=== PATIENT | male | born 1960 | race Caucasian/White ===

== ENCOUNTER 2021-09-20 20:39 | Inpatient (IN) | payer OTHER, BC ==
[~2021-09-20] VITALS: Ht 185.4 cm; Wt 102.5 kg
[2021-09-20 21:38] LABS: BASOPHILS ABSOLUTE AUTO 0.02 K/mm3 (0.00-0.23); BASOPHILS PERCENT AUTO 0 % (0-2); EOSINOPHILS ABSOLUTE AUTO 0.02 K/mm3 (0.00-0.68); EOSINOPHILS PERCENT AUTO 0 % (0-6); Hematocrit 35.7 % (37.0-53.0); IMMATURE GRAN ABSOLUTE AUTO 0.09 K/mm3 (0.00-0.10); IMMATURE GRAN PERCENT AUTO 1 % (0-1); LYMPHOCYTES ABSOLUTE AUTO 0.93 K/mm3 (0.84-5.20); LYMPHOCYTES PERCENT AUTO 7 % (21-46); MONOCYTES ABSOLUTE AUTO 0.61 K/mm3 (0.16-1.47); MONOCYTES PERCENT AUTO 5 % (4-13); Mean Corpuscular HGB Conc 36.4 g/dL (31.5-36.5); Mean Corpuscular Volume 85 fL (80-100); NEUTROPHILS ABSOLUTE AUTO 11.36 K/mm3 (1.96-9.15); NEUTROPHILS PERCENT AUTO 87 % (41-73); Platelet Count 288 K/mm3 (150-400); RDW Standard Deviation 40.3 fL (35.1-46.3); White Blood Cell Count 13.03 K/mm3 (4.00-11.30)
[2021-09-20 21:40] LABS: Source, Urine Foley catheter
[2021-09-20 21:42] LABS: Bilirubin, Urine Neg (Neg); Blood, Urine 3+ (Neg); Glucose Qualitative, Urine Neg (Neg); Ketones, Urine Neg (Neg); Leukocyte Esterase, Urine 2+ (Neg); Nitrite, Urine Neg (Neg); Protein, Urine Neg (Neg); Specific Gravity, Urine 1.005 (1.003-1.022); Urobilinogen, Urine NORM (Normal); pH, Urine 6.5 (5.0-8.0)
[2021-09-20 21:50] LABS: Appearance, Urine Clear (Clear); Color, Urine Pale Yellow (P-Yellow)
[2021-09-20 21:51] LABS: Bacteria Rare /hpf; Red Blood Cells, Urine 0-2 /hpf (0-2); Squamous Epithelial Cells Not Seen /hpf (Few)
[2021-09-20 21:56] LABS: Albumin, Blood 3.5 g/dL (3.4-5.0); Albumin/Globulin Ratio 1.3 (0.8-1.8); Bun/Creatinine Ratio 13.8 (12.0-20.0); Calcium, Blood 7.7 mg/dL (8.5-10.1); Creatinine, Blood 0.8 mg/dL (0.60-1.20); Globulin, Blood 2.7 g/dL (2.2-4.0); Total Protein, Blood 6.2 g/dL (6.4-8.2)
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
[2021-09-20 22:34] LABS: Free Thyroxine 0.99 ng/dL (0.70-1.60)
[2021-09-20 23:28] LABS: Osmolality, Serum 264 mos/KG (275-300)
[2021-09-20 23:40] LABS: Albumin, Blood 3.4 g/dL (3.4-5.0); Anion Gap 9 mmol/L (6-16); Blood Urea Nitrogen 10 mg/dL (8-24); CO2, Blood 21 mmol/L (21-32); Calcium, Blood 7.8 mg/dL (8.5-10.1); Chloride, Blood 101 mmol/L (98-108); Creatinine, Blood 0.77 mg/dL (0.60-1.20); Glomerular Filtration Rate 103 (60-); Glucose, Blood 119 mg/dL (70-99); Phosphorus, Blood 2.1 mg/dL (2.5-4.9); Potassium, Blood 3.9 mmol/L (3.5-5.5); Sodium, Blood 131 mmol/L (136-145); Thyroid Stimulating Hormone 0.393 uIU/mL (0.360-4.800); Uric Acid, Blood 7.8 mg/dL (3.5-7.2)
--- NOTE | 2021-09-21 | NUR ---
LABS DONE PER DR KURTZ'S ORDERS AND CALLED TO HIM. ORDERS RECEIVED. PT HAS HAD COPIOUS URINE OUTPUT. DR KURTZ HAS BEEN AWARE. PT HAS HAD ONLY ONE EPISODE OF EMESIS SINCE PT HAS ARRIVED. DID MEDICATE PT WITH 4 MG ZOFRAN WITH GOOD RESULTS. WILL CONTINUE TO MONITOR.
[2021-09-21] MEDS ORDERED: ACET500 PO ×2 (01:06)
[2021-09-21] MEDS ORDERED: TRAM50 PO ×2 (01:06)
[2021-09-21] MEDS ORDERED: LISI20 PO ×2 (01:07)
[2021-09-21] MEDS ORDERED: AMLO5 PO ×2 (01:08)
[2021-09-21] MEDS ORDERED: B-100 COMPLEX100 MG PO ×2 (01:09)
[2021-09-21] MEDS ORDERED: ASCORBIC ACID500 MG PO ×2 (01:10)
[2021-09-21] MEDS ORDERED: THERA-D2000 UNIT PO ×2 (01:10)
[2021-09-21] MEDS ORDERED: Hair, Skin & N1 EACH PO ×2 (01:11)
[2021-09-21 03:47] LABS: BASOPHILS ABSOLUTE AUTO 0.01 K/mm3 (0.00-0.23); BASOPHILS PERCENT AUTO 0 % (0-2); EOSINOPHILS ABSOLUTE AUTO 0.02 K/mm3 (0.00-0.68); EOSINOPHILS PERCENT AUTO 0 % (0-6); Hematocrit 36.2 % (37.0-53.0); Hemoglobin 13.1 g/dL (13.5-17.5); IMMATURE GRAN ABSOLUTE AUTO 0.04 K/mm3 (0.00-0.10); IMMATURE GRAN PERCENT AUTO 0 % (0-1); LYMPHOCYTES PERCENT AUTO 11 % (21-46); MONOCYTES ABSOLUTE AUTO 0.47 K/mm3 (0.16-1.47); MONOCYTES PERCENT AUTO 5 % (4-13); Mean Corpuscular HGB Conc 36.2 g/dL (31.5-36.5); Mean Corpuscular Volume 86 fL (80-100); Mean Platelet Volume 9.1 fL (9.1-12.4); NEUTROPHILS ABSOLUTE AUTO 7.98 K/mm3 (1.96-9.15); NEUTROPHILS PERCENT AUTO 84 % (41-73); Platelet Count 270 K/mm3 (150-400); RDW Coefficient Variation 13.2 % (11.7-14.2); RDW Standard Deviation 41.1 fL (35.1-46.3); Red Blood Cell Count 4.22 M/mm3 (4.30-5.90); White Blood Cell Count 9.52 K/mm3 (4.00-11.30)
[2021-09-21 04:04] LABS: Albumin, Blood 3.4 g/dL (3.4-5.0); Albumin/Globulin Ratio 1.2 (0.8-1.8); Bilirubin, Total 2.1 mg/dL (0.1-1.0); Bun/Creatinine Ratio 10.2 (12.0-20.0); Calcium, Blood 8.3 mg/dL (8.5-10.1); Creatinine, Blood 0.89 mg/dL (0.60-1.20); Globulin, Blood 2.9 g/dL (2.2-4.0); Potassium, Blood 4.1 mmol/L (3.5-5.5); Total Protein, Blood 6.3 g/dL (6.4-8.2)
--- NOTE | 2021-09-21 04:40 | NUR ---
HAVE UPDATED DR KURTZ WITH LABS. ORDERS RECEIVED. PT'S MENTATION HAS IMPROVED. DOES STATE HE HAS SOME DIFFICUTLY IN REMEMBER WHAT ALL HAD TRANSPIRED. DID REORIENT PT. NO SEIZURE ACTIVITIES HAVE BEEN NOTED SINCE ADMIT. PT'S AND DAUGHTER ARRIVED TO ROOM AND HAVE SINCE GONE TO [place] FOR THE NIGHT. WILL CONTINUE TO MONITOR PT.
--- NOTE | 2021-09-21 07:23 | NUR ---
PT HAS IMPROVED COGNITIVILY THROUGH THE NIGHT. IS ABLE TO ANSWER QUESTIONS WELL. NO COMPLAINTS OF HEADACHE. NO SEIZURE ACTIVITY. HOURLY URINE OUTPUTS PER DR KURTZ. PT MOVES ABOUT BED ON HIS OWN. REPORT GIVEN TO FAISAL PARRA
[2021-09-21 11:29] LABS: Bun/Creatinine Ratio 8.1 (12.0-20.0); Calcium, Blood 8.1 mg/dL (8.5-10.1); Creatinine, Blood 0.87 mg/dL (0.60-1.20); Potassium, Blood 3.5 mmol/L (3.5-5.5)
[2021-09-21 16:44] LABS: Bun/Creatinine Ratio 8.3 (12.0-20.0); Calcium, Blood 8.1 mg/dL (8.5-10.1); Creatinine, Blood 0.84 mg/dL (0.60-1.20); Potassium, Blood 3.4 mmol/L (3.5-5.5)
--- NOTE | 2021-09-21 19:14 | NUR ---
SHIFT SUMMARY Pt transferred from ICU at 1420, pt AOx4, reports full body muscle pain. Weakness, when transferring from W/C to bed. Vitals stable, lung sounds clear. Pt reported pain, tylenol, hydrocodone given, uneffective. Pt reports GI upsets, Maalox given. 1830 pt reports "phlem, congestion". Pt appears tachypneic, congested. Lungs clear at the bases, fluid heard in chest. SpO2 94% RA, BP 140/124, HR 87, RR 24. MD notified of concerns, MD ordered guafenisen for congestion, and monitor pts SpO2 & to notify MD if pt becomes hypoxic. Pt placed on continous pulse ox, placed in high fowlers position. Pt also being followed by Dr. Grove. Fluids DC'd. Current sodium level is 126, MD ordered Sodium Cl tablet 1g TID, next sodium lab draw to be done at 2100, & call MD at 2200.
[2021-09-21 21:17] LABS: Bun/Creatinine Ratio 9.3 (12.0-20.0); Calcium, Blood 8.1 mg/dL (8.5-10.1); Creatinine, Blood 0.86 mg/dL (0.60-1.20); Potassium, Blood 3.4 mmol/L (3.5-5.5)
[2021-09-22 00:36] LABS: Calcium, Blood 7.7 mg/dL (8.5-10.1); Creatinine, Blood 0.78 mg/dL (0.60-1.20); Potassium, Blood 3.5 mmol/L (3.5-5.5)
--- NOTE | 2021-09-22 04:04 | NUR ---
Patient with low grade temp overnight. NA checks called to Dr. Grove. New orders placed. Patient with harsh, congested cough. Pain throughout his body. Skin inspection reveals no acute skin issues. patient able to swallow without difficulty. Whitten catheter patent with concentrated urine overnight. Q4 hour out put charted.
[2021-09-22 05:52] LABS: Hematocrit 34.3 % (37.0-53.0); Hemoglobin 12.2 g/dL (13.5-17.5)
[2021-09-22 06:08] LABS: Albumin, Blood 3.1 g/dL (3.4-5.0); Anion Gap 6 mmol/L (6-16); Blood Urea Nitrogen 6 mg/dL (8-24); Bun/Creatinine Ratio 6.8 (12.0-20.0); CO2, Blood 26 mmol/L (21-32); Chloride, Blood 97 mmol/L (98-108); Creatinine, Blood 0.88 mg/dL (0.60-1.20); Glomerular Filtration Rate 99 (60-); Glucose, Blood 114 mg/dL (70-99); Magnesium, Blood 2.1 mg/dL (1.6-2.4); Phosphorus, Blood 1.5 mg/dL (2.5-4.9); Potassium, Blood 3.8 mmol/L (3.5-5.5); Sodium, Blood 129 mmol/L (136-145)
[2021-09-22 09:48] LABS: Bun/Creatinine Ratio 8.6 (12.0-20.0); Calcium, Blood 8.3 mg/dL (8.5-10.1); Creatinine, Blood 0.7 mg/dL (0.60-1.20)
--- NOTE | 2021-09-22 17:27 | NUR ---
DAYSHIFT SUMMARY This shift we closely monitored urine ouput & Na blood levels, and reported findings to Dr. Grove Q4H. This morning the pt had 2,250 urine output in 5 hours. ordered DDAVP inhale, administred 2x this shift. sodium tabs DC'd. Urine output <1,000 remainder of shift. This morning urine clear/yellow, now appears dark/concentrated. Pt signed MRI consent form, Head MRI resulted. Pt worked with therapy, staff supervision for safety. Pt able to transfer independently, but continues to report severe muscle pain. Hydrocodone & tylenol given for pain.
--- NOTE | 2021-09-22 18:42 | NUR ---
Notified Dr. Grove of Sodium blood level (resulted 133). Dr. Grove instructed RN to removed douglas cath, and chart strict input/output. Order Sodium lab draw at 2200, and called Dr. Grove by 2300 with Sodium result and I/Os.
--- NOTE | 2021-09-23 04:30 | NUR ---
Patient with VSS on RA overnight. Continuous pulse ox reading in the mid 90s overnight. Up ad pat to the bathroom. Voiding small amounts of concentrated urine. Moderate c/o lower back and abdomen pain. See MAR.
[2021-09-23 05:32] LABS: Hematocrit 34.9 % (37.0-53.0); Hemoglobin 12.3 g/dL (13.5-17.5)
[2021-09-23 05:52] LABS: Anion Gap 5 mmol/L (6-16); Blood Urea Nitrogen 10 mg/dL (8-24); Bun/Creatinine Ratio 12.2 (12.0-20.0); CO2, Blood 28 mmol/L (21-32); Calcium, Blood 8.4 mg/dL (8.5-10.1); Chloride, Blood 100 mmol/L (98-108); Creatinine, Blood 0.82 mg/dL (0.60-1.20); Glomerular Filtration Rate 101 (60-); Glucose, Blood 102 mg/dL (70-99); Magnesium, Blood 2.3 mg/dL (1.6-2.4); Phosphorus, Blood 2.4 mg/dL (2.5-4.9); Potassium, Blood 4.1 mmol/L (3.5-5.5); Sodium, Blood 133 mmol/L (136-145)
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
[2021-09-23 12:14] LABS: Alanine Aminotransfer (ALT/SGP 151 U/L (12-78); Albumin/Globulin Ratio 0.9 (0.8-1.8); Alk Phos 70 U/L (50-136); Aspartate Aminotrans (AST/SGOT 413 U/L (12-37); Bilirubin, Direct 0.3 mg/dL (0.0-0.3); Bilirubin, Indirect 1.3 mg/dL (0.1-0.7); Bilirubin, Total 1.6 mg/dL (0.1-1.0); Globulin, Blood 3.5 g/dL (2.2-4.0); Sodium, Blood 134 mmol/L (136-145); Total Protein, Blood 6.5 g/dL (6.4-8.2)
[2021-09-23 12:38] LABS: CPK Creatine Kinase >20000 U/L (39-308)
--- NOTE | 2021-09-23 16:59 | NUR ---
DECISION TO KEEP PATIENT IN HOSPITAL TODAY. LIVER FUNCTION TESTS ORDERED. ABNORMAL RESULTS. ABDOMINAL DISTENTION-XRAY COMPLETED SHOWING NO ACUTE PROCESSEES. NS IS RUNNING AT 100MG/HR. PATIENT HAD NORCO AT 0751-EFFECTIVE. ROBOTUSSIN WAS ORDERED AND ADMINISTERED AT 1310 FOR COUGH, AND FEELILNG OF A PHLEM BLOCK. RESPIRATORY GAVE A NEB TREATMENT AND FLUTTER VALVE WAS ORDERED. PATIENT REQUESTED TYLENOL AT 1305 FOR HEADACHE DUE TO COUGHING. CEPACOL WAS ALSO ORDERED FOR COUGH RELIEF. PATIENT IS IN GOOD MOOD, VISITING WITH FAMILY.
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
--- NOTE | 2021-09-24 03:58 | NUR ---
Patient with VSS on RA overnight. Up independently in the room. Voiding clear, yellow liquid. C/O pain in his lower back and shoulders overnight. See MAR. Bowel medications administered without results overnight. Abdomen distended with normal bowel sounds. Passing flatus. Continue bowel care. Home with family when medically stable.
[2021-09-24 05:10] LABS: Hematocrit 35.1 % (37.0-53.0); Hemoglobin 12.2 g/dL (13.5-17.5)
[2021-09-24 05:55] LABS: Albumin, Blood 2.8 g/dL (3.4-5.0); Anion Gap 6 mmol/L (6-16); Blood Urea Nitrogen 9 mg/dL (8-24); Bun/Creatinine Ratio 12.9 (12.0-20.0); CO2, Blood 27 mmol/L (21-32); Calcium, Blood 8.3 mg/dL (8.5-10.1); Chloride, Blood 104 mmol/L (98-108); Glomerular Filtration Rate 106 (60-); Glucose, Blood 105 mg/dL (70-99); Magnesium, Blood 1.9 mg/dL (1.6-2.4); Phosphorus, Blood 3.1 mg/dL (2.5-4.9); Potassium, Blood 4.2 mmol/L (3.5-5.5); Sodium, Blood 137 mmol/L (136-145)
--- NOTE | 2021-09-24 15:57 | NUR ---
SHIFT SUMMARY PT AWAKE AT START OF SHIFT. C/O CONSTIPATION CONTINUING. PT ENCOURAGED TO GET OOB AND WALK BEFORE BREAKFAST. BOWEL CARE GIVEN AGAIN WITH AM MEDS. PT UP AMBULATING IN HALLS FOR A WHILE AND THEN BACK TO . STRICT I&O'S MARKED; SEE CHART. PT LATER ABLE TO HAVE LG BM, FEELING MUCH BETTER. ABD NOW SOFTER. ATTEMPTED TO CALL DR KURTZ PER ORDERS FOR URINE OUTPUT; UNABLE TO CONTACT HIM. DR PARADA NOTIFIED WITH UPDATE ON URINE OUTPUT; NEW ORDERS PLACED. DR KURTZ LATER RETURNED CALL; NEW ORDERS PLACED. LAB HERE TO OBTAIN STAT NA+ LEVEL. DR KURTZ TO BE NOTIFIED OF RESULTS WHEN COMPLETE. FAMILY HERE TO VISIT MOST OF THE DAY. PT UP INDEPENDENTLY TO SHOWER. TELE D/C'D PER ORDERS. IVF'S INFUSING PER EMAR. DENIES FURTHER NEEDS AT THIS TIME. CALL LT IN REACH.
--- NOTE | 2021-09-24 18:12 | NUR ---
PT AWAKE AND TRANSFERRED TO THE BATHROOM INDEPENDANTLY. PT IS ON STRICT I&O'S. PT URINE OUTOUT FOR FIRST FOUR HOURS OF SHIFT WAS 700ML. DR. KURTZ CONTACTED PER ORDERED OF OUTPUT OVER 300ML WITHIN 1-4HRS. DR. KURTZ ORDERED A SODIUM DRAW AND TO HOLD DESMOPRESSIN ADMINSTARTION. PT SODIUM LEVEL 137. PT AMBULATING IN THE HALLS INDEPENDANTLY. PT ABDOMEN WAS HARD, TENDER ON PALPATION. PT STATED HE WAS CONSTIPATED AND HAD DIFFICULTY PASSING STOOL. PT WAS GIVEN PRUNE JUICE. PT WAS ABLE TO HAVE A LARGE FORMED BOWEL MOVEMENT LATER IN THE SHIFT. PT REQUESTED PAIN MEDICATION FOR /10 LOWER BACK PAIN. PT REASSESSED AND /10 PAIN. PT RESTING IN BED WITH CALL LIGHT WITHIN REACH.
--- NOTE | 2021-09-25 04:34 | NUR ---
patient with VSS on RA overnight. Ambulate din plascencia multiple times. Discussed his free water intake. Patient drank apple jiuce and a milkshake overnight. Voiding clear, yellow urine, QS. Abdomen still distended with hypo bowel sounds. No stool overnight. NA at [address] Grove called. No new orders recieved. patient will go home with at [place].
[2021-09-25 06:21] LABS: Albumin, Blood 2.9 g/dL (3.4-5.0); Albumin/Globulin Ratio 0.8 (0.8-1.8); Bilirubin, Direct 0.2 mg/dL (0.0-0.3); Bilirubin, Indirect 0.6 mg/dL (0.1-0.7); Bilirubin, Total 0.8 mg/dL (0.1-1.0); Bun/Creatinine Ratio 13.8 (12.0-20.0); Creatinine, Blood 0.8 mg/dL (0.60-1.20); Globulin, Blood 3.5 g/dL (2.2-4.0); Phosphorus, Blood 4.5 mg/dL (2.5-4.9); Potassium, Blood 4.5 mmol/L (3.5-5.5); Total Protein, Blood 6.4 g/dL (6.4-8.2)
[2021-09-25] MEDS ORDERED: MAALOX PLUS PO ×2 (11:10)
[2021-09-25] MEDS ORDERED: FOLI1 PO ×2 (11:13)
[2021-09-25] MEDS ORDERED: CEPACOL SORE THROAT MT ×2 (11:13)
[2021-09-25] MEDS ORDERED: B-1100 M1 PO ×2 (11:14)
[2021-09-25] MEDS ORDERED: SENN187 PO ×2 (11:14)
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
== END 2021-09-25 11:37 | disposition home or self-care (01) | DRG 641 ==
LOC: ICUE 20:39 → MEDS 20:39 → ICUE 20:40 → MEDS 20:40 → ICUE 09-21 14:34 → MEDS 09-21 15:15 → ICUE 09-21 15:15 → MEDS 09-23 12:45
PROVIDERS: Internal Medicine; Internal Medicine Nephrology; ADMIT Internal Medicine
DX: E87.1 Hypo-osmolality and hyponatremia (principal); G93.40 Encephalopathy, unspecified; M62.82 Rhabdomyolysis; R56.9 Unspecified convulsions; F10.20 Alcohol dependence, uncomplicated; R14.0 Abdominal distension (gaseous); R79.89 Other specified abnormal findings of blood chemistry; M54.9 Dorsalgia, unspecified; M25.519 Pain in unspecified shoulder; E83.39 Other disorders of phosphorus metabolism; D64.9 Anemia, unspecified; R35.89 Other polyuria; I10 Essential (primary) hypertension; F17.210 Nicotine dependence, cigarettes, uncomplicated; Z79.899 Other long term (current) drug therapy; Z71.41 Alcohol abuse counseling and surveillance of alcoholic; V89.2XXA Person injured in unspecified motor-vehicle accident, traffic, initial encounter
CPT/HCPCS: 36415; 70553; 71045; 74018; 80048; 80053; 80069; 80076; 81001; 82085; 82248; 82533; 82550; 82947; 83605; 83735; 83880; 83930; 83935; 84100; 84295; 84439; 84443; 84550; 85014; 85018; 85025; 87086; 94640; 94664; 94760; 94762; 97116; 97161; A9270; A9579; G0378; J1650; J2405; J7030; J7060; J7070

== ENCOUNTER → 2021-09-22 | Outpatient (CLI) | payer OTHER ==
[~2021-09-22] MED LIST: ACET500 PO; AMLO5 PO; ASCORBIC ACID500 MG PO; B-100 COMPLEX100 MG PO; B-1100 M1 PO; CEPACOL SORE THROAT MT; FOLI1 PO; Hair, Skin & N1 EACH PO; LISI20 PO; MAALOX PLUS PO; SENN187 PO; THERA-D2000 UNIT PO; TRAM50 PO
[2021-09-23 08:10] LABS: HBSAG SCREEN Negative (Negative); HCV ANTIBODY <0.1 (0.0-0.9)
== END | disposition home or self-care (01) ==
LOC: LAB 07:55 → EDSTATUS 10:49
DX: Z77.21 Contact with and (suspected) exposure to potentially hazardous body fluids (principal)
CPT/HCPCS: 86703; 86803; 87340